=== PATIENT | female | born 1940 ===

== ENCOUNTER 2022-04-19 10:11 | Day surgery (SDC) | payer OTHER ==
[~2022-04-19] VITALS: Ht 149.9 cm; Wt 50.8 kg
[~2022-04-19 10:11] MED LIST: ATORVASTATIN CA40 MG PO; METFORMIN HCL500 M3 PO; PLAVIX75 MG PO
== END 2022-04-19 19:50 | disposition home or self-care (01) ==
LOC: CIR.AMB 10:11 → EDBD 10:15 → CIR.AMB 10:15
PROVIDERS: ATTEND Surgery
DX: C50.811 Malignant neoplasm of overlapping sites of right female breast (principal); Z17.1 Estrogen receptor negative status [ER-]; Z88.6 Allergy status to analgesic agent; Z20.822 Contact with and (suspected) exposure to COVID-19
CPT/HCPCS: 19301; 19281; L8699